=== PATIENT | male | born 1975 | race Caucasian/White ===

== ENCOUNTER 2018-02-03 10:32 | Emergency (ER) | payer SELFPAY ==
--- NOTE | 2018-02-03 11:41 | EDPHY ---
H & P Smoking Status: Never smoked Time Seen by Provider: 02/03/18 11:23 HPI/ROS: CHIEF COMPLAINT: Possible spider bite HISTORY OF PRESENT ILLNESS: 42-year-old male presents to the emergency department with possible spider bites to upper and lower extremities. No fevers or chills. He has been camping a lot over last few weeks. He states that he has been picking at the area and draining pus from the wounds. He denies pain in his chest or difficulty breathing. Denies abdominal pain. ROS: Denies fevers, chills, lymphangitis (LilyRatna padgett) Past Medical/Surgical History: Negative (Ratna Horvath) Social History: From [place], [place] (Ratna Horvath) Physical Exam: On examination the patient has numerous excoriated lesions to upper and lower extremities including the left posterior lateral calf with surrounding erythema and induration. There is no lymphangitis. No purulent drainage or fluctuance or evidence of abscess. Very tender to palpate in the left lateral calf. (YulietRatna Stubbs) Constitutional: Initial Vital Signs Temperature (C) 36.5 C 02/03/18 10:35 Heart Rate 84 02/03/18 10:35 Respiratory Rate 16 02/03/18 10:35 Blood Pressure 107/76 02/03/18 10:35 O2 Sat (%) 96 02/03/18 10:35 O2 Delivery Mode Room Air Allergies/Adverse Reactions: No Known Allergies Allergy (Unverified 02/03/18 10:35) Home Medications: Medication Instructions Recorded Cephalexin [Keflex] 500 mg PO QID #28 cap 02/03/18 Sulfamethox/Tmp 800/160 mg 1 tab PO BID #14 tab 02/03/18 [Bactrim DS] MDM/Departure - MDM Medications Given: Discontinued Medications Diphtheria/Tetanus/Acell Pertussis (Boostrix) 0.5 ml IM .ONCE ONE Stop: 02/03/18 11:57 Last Admin: 02/03/18 11:59 Dose: Not Given ED Course/Re-evaluation: 42-year-old male with multiple excoriated wounds presumably spider bites. The lesion on his left calf appears to have associated cellulitis with induration surrounding redness and warmth. Very tender to palpate. He will be covered with Keflex and Bactrim. His tetanus shot was updated. (Ratna Horvath) I did not see this patient while he was in the emergency department. However his care was discussed with the PA while the patient was in the department. I agree with treatment plan and management (Lui Grubbs) - Depart Disposition: Home, Routine, Self-Care Clinical Impression: Cellulitis, Spider bite Condition: Good Instructions: Cellulitis (ED), Insect Bite or Sting (ED) Additional Instructions: Keflex and Bactrim as directed for 1 week. Your given a tetanus shot today in the emergency department. Please document this for your records. Warm compresses as discussed. Return if he developed increased swelling or redness, fever, increasing pain, or if you feel worse in any way. Prescriptions: Cephalexin [Keflex] 500 mg PO QID #28 cap Sulfamethox/Tmp 800/160 mg [Bactrim DS] 1 tab PO BID #14 tab Referrals: Chandana Williamson MD [Medical Doctor] - As per Instructions
[2018-02-03] MEDS ORDERED: TDAP ADULT 0.5 ML INJ (BOOSTRIX) IM ONE (11:56)
[2018-02-03 12:00] VITALS: BP 113/79
== END 2018-02-03 11:58 | disposition home or self-care (01) ==
DX: S90.562A Insect bite (nonvenomous), left ankle, initial encounter (principal); L03.818 Cellulitis of other sites; Z23 Encounter for immunization; W57.XXXA Bitten or stung by nonvenomous insect and other nonvenomous arthropods, initial encounter; Y92.9 Unspecified place or not applicable

== ENCOUNTER 2018-02-06 00:02 | Emergency (ER) | payer SELFPAY ==
[2018-02-06] MEDS ORDERED: SULFAMETHOX/TMP 800/160 MG 1 TAB PO ONE (01:04)
[2018-02-06] MEDS ORDERED: CEPHALEXIN 500 MG CAP PO ONE (01:04)
[2018-02-06] MEDS ORDERED: TDAP ADULT 0.5 ML INJ (BOOSTRIX) IM ONE (01:11)
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
[2018-02-06 01:33] VITALS: BP 132/70
== END 2018-02-06 01:22 | disposition home or self-care (01) ==
DX: L03.116 Cellulitis of left lower limb (principal)